=== PATIENT | male | born 1985 | race Two or more races ===

== ENCOUNTER 2017-04-15 17:33 | Emergency (ER) | payer SELFPAY ==
[~2017-04-15] VITALS: Ht 177.8 cm; Wt 101.0 kg
[2017-04-16 05:55] VITALS: BP 139/70
== END 2017-04-16 06:45 | disposition home or self-care (01) ==
LOC: ER 17:33
DX: Z04.8 Encounter for examination and observation for other specified reasons (principal)
CPT/HCPCS: 99283